=== PATIENT | female | born 1965 | race Two or more races ===

== ENCOUNTER 2018-11-02 12:10 | Day surgery (SDC) | payer BC ==
[~2018-11-02] VITALS: Ht 162.6 cm; Wt 49.7 kg
[~2018-11-02 12:10] MED LIST: AMBEREN; ZOLOFT
[2018-11-02 12:58] VITALS: Ht 162.6 cm; Wt 49.7 kg
[2018-11-02 13:23] VITALS: BP 112/57; PULSE 61; RESP 20
--- NOTE | 2018-11-02 14:05 | PREAC ---
Date/Time of Note Date/Time of Note DATE: 11/02/18 TIME: 14:00 Anesthesia Eval and Record Evaluation Time Pre-Procedure Interview DATE: 11/02/18 TIME: 14:00 Age 53 Sex female NPO: 8 hrs Preoperative diagnosis MELENA Planned procedure EGD, COLONOSCOPY WITH BIOPSIES Past Medical History Past Medical History: Includes Psych: Depression, Anxiety Surgery & Anesthesia Issues No known issue Meds Anticoagulation: No Beta Randi within 24 hr: No Reason Beta Randi not given: Pt. not on B-Randi Reported Medications [Amberen] No Conflict Check 11/02/18 [Zoloft] No Conflict Check 11/02/18 Meds reviewed: Yes Allergies Coded Allergies: No Known Allergy (Unverified , 11/02/18) Allergies Reviewed: Yes Labs/Studies Labs Reviewed: Reviewed by anesthesiologist test: N/A Pre-procedure Exam Last vitals Vital Signs Date Temp Pulse Resp B/P (MAP) Pulse Ox O2 O2 Flow FiO2 Time Delivery Rate 11/02/18 97.4 61 20 112/57 98 Room Air 13:23 (75) Airway: Adequate mouth opening, Adequate thyromental dist Mallampati: Mallampati II Teeth: Normal Lung: Normal Heart: Normal ASA Physical Status ASA physical status: 2 Emergency: None Planned Anesthetic General/MAC: MAC Planned Pain Management Parenteral pain med Pre-operative Attestations Prior to commencing anesthesia and surgery, the patient was re-evaluated, there was verification of: *The patient's identity *The results of appropriate recent lab work and preoperative vital signs *The above evaluation not changing prior to induction *Anesthetic plan, risk benefits, alternative and complications discussed with patient/family; questions answered; patient/family understands, accepts and wishes to proceed. Tray Driver M.D. Nov 02, 2018 14:04
[2018-11-02] MEDS ORDERED: LIDOCAINE 100 MG SYRINGE ONE (14:18)
[2018-11-02] MEDS ORDERED: FENTAnyl 50 MCG/ML VIAL ONE (14:18)
[2018-11-02] MEDS ORDERED: PROPOFOL 40 ML ONE (14:18)
--- NOTE | 2018-11-02 15:34 | PAC ---
Date/Time of Note Date/Time of Note DATE: 11/02/18 TIME: 15:33 Post-Anesthesia Notes Post-Anesthesia Note Last documented vital signs Vital Signs Date Temp Pulse Resp B/P (MAP) Pulse Ox O2 O2 Flow FiO2 Time Delivery Rate 11/02/18 97.4 61 20 112/57 98 Room Air 13:23 (75) Activity: WNL Respiratory function: WNL Cardiovascular function: WNL Mental status: Baseline Pain reasonably controlled: Yes Hydration appropriate: Yes Nausea/Vomiting absent: Yes Tray Driver M.D. Nov 02, 2018 15:33
== END 2018-11-02 16:14 | disposition home or self-care (01) ==
LOC: GIL 12:10
PROVIDERS: ATTEND Internal Medicine Gastroenterology
DX: Z12.11 Encounter for screening for malignant neoplasm of colon (principal); K64.8 Other hemorrhoids
CPT/HCPCS: 43239; 45378; 88305; 88312; J2001; J3010; Z7610